=== PATIENT | female | born 1935 | race Caucasian/White ===

== ENCOUNTER 2018-11-11 09:52 | Outpatient (CLI) | payer MEDICARE, OTHER ==
--- NOTE | 2018-11-11 10:26 | ULT ---
Exam: Bilateral renal ultrasound HISTORY: Chronic kidney disease COMPARISON: None FINDINGS: Right kidney: Normal cortical echotexture. No hydronephrosis. There is right renal cortical thinning. Right kidney measurements: 10.5 x 4.7 x 4.7 cm. Left kidney: Normal cortical echotexture. No hydronephrosis. There is left renal cortical thinning. S mall hypoechoic focus emanating from the upper pole of the left kidney measuring 1.2 x 1.1 x 1.0 cm Left kidney measurements 4.2 x 9.2 x 4.2 cm. Urinary bladder: Normal mucosa. IMPRESSION: 1. No hydronephrosis. 2. Hypoechoic focus emanating from the upper pole of the left kidney too small to characterize 3. Bilateral renal cortical thinning.
== END 2018-11-11 09:53 | disposition home or self-care (01) ==
LOC: BICULT 09:52
PROVIDERS: ATTEND Internal Medicine Nephrology
DX: N18.3 Chronic kidney disease, stage 3 (moderate) (principal); N28.89 Other specified disorders of kidney and ureter
CPT/HCPCS: 76770

== ENCOUNTER 2018-12-08 00:22 | Emergency (ER) | payer MEDICARE, OTHER ==
[2018-12-08] MEDS ORDERED: Morphine 4 MG/ML VIAL ONE ×2 (01:10→05:13)
[2018-12-08 01:37] LABS: #Basophils 0.1 thou/uL (0.0-0.2); #Eosinphils 0.2 thou/uL (0.0-0.7); #Lymphocytes 1.4 thou/uL (1.20-3.40); #Monocytes 1.1 thou/uL (0.11-0.59); #Neutrophils 15.7 thou/uL (1.40-6.50); %Basophils 0.3 % (0.0-1.0); %Lymphocytes 7.4 % (21.0-51.0); %Monocytes 6.1 % (0.0-10.0); %Neutrophils 85.1 % (42.0-75.0); Hemoglobin 10.4 g/dL (12.0-16.0); Mean Corpuscular HGB CONC 32.9 g/dL (32.0-36.0); Mean Corpuscular Hemoglobin 29.4 pg (27.0-31.0); Mean Corpuscular Volume 89.3 fL (78.0-98.0); Mean Platelet Volume 6.8 fL (7.4-10.4); Platelet Count 313 thou/uL (130-400); RBC Distribution Width 14.3 % (11.5-14.5); Red Blood Cell (RBC) Count 3.55 mill/uL (4.20-5.40); White Blood Cell (WBC) Count 18.4 thou/uL (4.8-10.8)
[2018-12-08 01:56] LABS: Anion Gap 14 mmol/L (10-20); BUN (Urea Nitrogen) 30 mg/dL (9.8-20.1); Calc. Creatinine Clearance 0 mL/min (70-130); Calcium 9.6 mg/dL (7.8-10.44); Carbon Dioxide 21 mmol/L (23-31); Chloride 105 mmol/L (98-107); Estimated GFR-MDRD 28; Glucose 221 mg/dL (83-110); Potassium 3.1 mmol/L (3.5-5.1); Sodium 137 mmol/L (136-145)
[2018-12-08] MEDS ORDERED: Labetalol HCl 100 MG/20 ML VIAL ONE (02:20)
[2018-12-08] MEDS ORDERED: Lidocaine 1% (PF) 30 ML VIAL ONE (02:30)
--- NOTE | 2018-12-08 08:33 | RAD ---
RIGHT FOREARM 2 VIEWS: Date: 12/08/18 HISTORY: Fall. Pain. COMPARISON: None. FINDINGS: Distal radius fracture with dorsal angulation. Associated soft tissue swelling and deformity. Displac ed ulnar styloid fracture. IMPRESSION: Distal radius and ulna fractures. POS: [facility]
--- NOTE | 2018-12-08 08:34 | RAD ---
3 VIEWS RIGHT ELBOW: Date: 12/08/18 HISTORY: Fall. Pain. FINDINGS: No fracture. Joint space preserved. No joint effusion. IMPRESSION: No fracture. POS: [facility]
--- NOTE | 2018-12-08 08:35 | RAD ---
2 VIEWS RIGHT HUMERUS: Date: 12/08/18 HISTORY: Fall. Pain. FINDINGS: Impacted fracture involving the right humeral neck. There is mild displacement. IMPRESSION: Proximal right humerus fracture. POS: [facility]
--- NOTE | 2018-12-08 08:54 | RAD ---
RIGHT SHOULDER 2 VIEWS: HISTORY: Fall. Pain. FINDINGS: Impacted fracture involving the humeral neck. There does appear to be extensor fracture lucency to t he articular surface. Nondisplaced humeral head fracture is noted. IMPRESSION: Right humerus fracture. POS: [facility]
--- NOTE | 2018-12-08 09:03 | RAD ---
SINGLE VIEW OF THE CHEST: COMPARISON: None. HISTORY: Fall with chest pain. FINDINGS: A single view of the chest shows a normal-size cardiomediastinal silhouette. The patient is status p ost cardiac valve repair. Atherosclerotic calcification is seen in the aorta. Atelectasis versus sc arring is seen in the mid left lung. No consolidation or mass are seen. IMPRESSION: No evidence of acute cardiopulmonary disease. POS: [facility]
--- NOTE | 2018-12-08 09:32 | RAD ---
2 VIEWS RIGHT WRIST: Date: 12/08/18 Time: 0056 hours HISTORY: Distal radius fracture. FINDINGS: 2 views of the right wrist show an overlying fiberglass splint which obscures fine bony and soft tiss ue detail. There is a comminuted interarticular fracture of the distal radius and an associated ulnar styloid fracture. Alignment has not changed significantly compared to the prior examination. IMPRESSION: Distal radius and associated ulnar styloid fracture. POS: [facility]
--- NOTE | 2018-12-08 09:33 | RAD ---
3 VIEWS RIGHT WRIST: Date: 12/08/18 COMPARISON: None. HISTORY: Fall with right wrist pain. FINDINGS: 3 views of the right wrist show a comminuted interarticular fracture of the distal radius and an asso ciated ulnar styloid fracture. Moderate degenerative changes are seen in the first CMC joint. Diffuse soft tissue swelling is seen. IMPRESSION: Comminuted interarticular distal radius fracture and associated ulnar styloid fracture. POS: [facility]
== END 2018-12-08 08:59 ==
LOC: ERS 00:22
DX: S52.501A Unspecified fracture of the lower end of right radius, initial encounter for closed fracture (principal); S42.201A Unspecified fracture of upper end of right humerus, initial encounter for closed fracture; W19.XXXA Unspecified fall, initial encounter
CPT/HCPCS: 23625; 24655; 36415; 71045; 80048; 85025; 96374; 96375; 96376; J2001; J2270

== ENCOUNTER 2019-10-15 08:10 | Emergency (ER) | payer MEDICARE, OTHER ==
[2019-10-15 08:59] LABS: #Basophils 0.1 thou/uL (0.0-0.2); #Eosinphils 0.2 thou/uL (0.0-0.7); #Lymphocytes 1.8 thou/uL (1.20-3.40); #Monocytes 0.8 thou/uL (0.11-0.59); #Neutrophils 6.2 thou/uL (1.40-6.50); %Basophils 0.8 % (0.0-1.0); %Eosinophils 2.5 % (0.0-10.0); %Lymphocytes 19.7 % (21.0-51.0); %Monocytes 8.5 % (0.0-10.0); %Neutrophils 68.5 % (42.0-75.0); Hemoglobin 11.8 g/dL (12.0-16.0); Mean Corpuscular HGB CONC 31.2 g/dL (32.0-36.0); Mean Corpuscular Hemoglobin 28.9 pg (27.0-31.0); Mean Corpuscular Volume 92.5 fL (78.0-98.0); Mean Platelet Volume 7.6 fL (7.4-10.4); Platelet Count 317 thou/uL (130-400); RBC Distribution Width 12.8 % (11.5-14.5); Red Blood Cell (RBC) Count 4.09 mill/uL (4.20-5.40); White Blood Cell (WBC) Count 9.1 thou/uL (4.8-10.8)
--- NOTE | 2019-10-15 09:03 | RAD ---
Exam: Chest one view HISTORY:Shortness of breath. Severe anxiety. Comparison: 01/04/2019 FINDINGS: Cardiac silhouette:Upper normal cardiac silhouette. Stable osteolytic aortic valve. Aorta: Stable atherosclerosis. Pulmonary vessels: Normal Costophrenic angles: Clear LUNGS: Stable chronic changes of the lung parenchyma. Pneumothorax: None Osseous abnormalities: Old left rib fractures and old right humeral neck fracture. IMPRESSION: No acute cardiopulmonary process.
[2019-10-15 09:29] LABS: ALT (SGPT) 18 U/L (8-55); AST (SGOT) 22 U/L (5-34); Albumin 4.2 g/dL (3.4-4.8); Alkaline Phosphatase 75 U/L (40-110); Anion Gap 16 mmol/L (10-20); BUN (Urea Nitrogen) 19 mg/dL (9.8-20.1); Bilirubin, Total 0.7 mg/dL (0.2-1.2); CK (CPK) 96 U/L (29-168); Calc. Creatinine Clearance 0 mL/min (70-130); Calcium 9.3 mg/dL (7.8-10.44); Carbon Dioxide 21 mmol/L (23-31); Chloride 106 mmol/L (98-107); Estimated GFR-MDRD 25; Globulin 3.4 g/dL (2.4-3.5); Glucose 163 mg/dL (83-110); Lipase 22 U/L (8-78); Potassium 3.9 mmol/L (3.5-5.1); Protein, Total 7.6 g/dL (6.0-8.3); Sodium 139 mmol/L (136-145)
== END 2019-10-15 11:10 | disposition home or self-care (01) ==
LOC: ERS 08:10
DX: I10 Essential (primary) hypertension (principal); E11.9 Type 2 diabetes mellitus without complications; J44.9 Chronic obstructive pulmonary disease, unspecified; F41.9 Anxiety disorder, unspecified
CPT/HCPCS: 71045; 80053; 82550; 83690; 84484; 85025; 93005

== ENCOUNTER 2019-12-01 09:21 | Outpatient (CLI) | payer MEDICARE, OTHER ==
--- NOTE | 2019-12-01 11:41 | MRI ---
MRI CERVICAL SPINE WITHOUT CONTRAST: Date: 12/01/2019 INDICATION: Cervical myelopathy. Neck pain. FINDINGS: The cervical vertebra maintain height. Vertebral body signal is preserved. Mild anterolisthesis at C5 -6 measures approximately 3.0 mm. Alignment is otherwise preserved. Degenerative disc changes with lo ss of disc space at C6-7. Mild degenerative osteophytes from the cervical vertebra. Findings at each level are noted. C2-3: Mild posterior disc bulge and spondylosis without central canal or foraminal stenosis. C3-4: Mild disc bulge and spondylosis abut the anterior cord. Mild right foraminal encroachment from uncinate hypertrophy. C4-5: Posterior disc bulge and spondylosis efface the anterior subarachnoid space. No significant co rd impingement. Mild right foraminal narrowing due to facet and uncinate hypertrophy. C5-6: Anterolisthesis is noted above. Posterior disc bulge and spondylosis abut the anterior cord. N o significant foraminal stenosis noted. C6-7: Disc bulge and spondylosis abut the anterior cord. No significant foraminal stenosis. C7-T1: Minimal disc bulge and spondylosis. Anterior subarachnoid space is preserved with no central canal or foraminal stenosis. Cervical cord signal appears normally maintained. No evidence of cervical cord edema or lesion. IMPRESSION: Degenerative changes of the cervical spine with posterior spondylosis, most prominent at C3-4, C4-5, C5-6, and C6-7 as described above. POS: [facility]
--- NOTE | 2019-12-01 11:42 | MRI ---
MRI Lumbar Spine Noncontrast: HISTORY: Bilateral leg weakness. Low back pain with numbness in left leg after falling one year ago. COMPARISON: None FINDINGS: Subcentimeter increased T2-weighted signal intensity exophytic lesions are seen in the superior pole right kidney and in the superior pole and midportion left kidney which are difficult to characterize given small size but statistically likely represent cysts. Conus medullaris is normal in morphology and terminates at the L1-2 level. Normal signal intensity is demonstrated in the bone marrow. L1-2: There is no disc bulge or disc herniation. Central spinal canal and neural foramina are patent. L2-3: Mild disc osteophyte complex. No significant central canal narrowing is present. Neural foramin a are patent. Mild facet degenerative changes are seen. L3-4: Broad-based disc osteophyte complex with small central disc protrusion. Findings result in flat tening of the anterior aspect of the thecal sac. Neural foramina are patent. L4-5: Mild disc osteophyte complex. Facet hypertrophic changes and ligamentous thickening are present . Findings result in mild central canal narrowing. Neural foramina are patent. L5-S1: Mild disc osteophyte complex present. No central spinal canal or neural foraminal narrowing is present. IMPRESSION: 1 Mild degenerative changes in the lumbar spine without definite central canal narrowing at any level . Neural foramina are patent all levels of the lumbar spine. 2. Hyperintense lesions in the superior pole of each kidney and midportion left kidney statistically likely related to cysts.
== END 2019-12-01 09:22 | disposition home or self-care (01) ==
LOC: BICMRI 09:21
PROVIDERS: ATTEND Family Medicine
DX: M47.12 Other spondylosis with myelopathy, cervical region (principal); R29.898 Other symptoms and signs involving the musculoskeletal system; M47.816 Spondylosis without myelopathy or radiculopathy, lumbar region; N28.89 Other specified disorders of kidney and ureter
CPT/HCPCS: 72141; 72148

== ENCOUNTER 2020-03-29 10:17 | Outpatient (CLI) | payer MEDICARE, OTHER ==
--- NOTE | 2020-04-26 15:50 | MMO ---
Bilateral MAMMO Bilat Screen [facility]. CLINICAL HISTORY: Patient is 84 years old and is seen for screening. The patient has the following family history of breast cancer: sister. The patient has no personal history of cancer. VIEWS: The views performed were: bilateral craniocaudal; bilateral craniocaudal with tomosynthesis; and bilateral mediolateral oblique with tomosynthesis. This study has been interpreted with the assistance of computer-aided detection. MAMMOGRAM FINDINGS: There are scattered fibroglandular densities. There are calcifications seen in both breasts. There are no suspicious masses, suspicious calcifications, or new areas of architectural distortion. IMPRESSION: THERE IS NO MAMMOGRAPHIC EVIDENCE OF MALIGNANCY. A ROUTINE FOLLOW-UP MAMMOGRAM IN 1 YEAR IS RECOMMENDED. THE RESULTS OF THIS EXAM WERE SENT TO THE PATIENT. ACR BI-RADS Category 2 - Benign finding MAMMOGRAPHY NOTE: 1. A negative mammogram report should not delay a biopsy if a dominant of clinically suspicious mass is present. 2. Approximately 10% to 15% of breast cancers are not detected by mammography. 3. Adenosis and dense breasts may obscure an underlying neoplasm. Reported by: MATEO AARON MD Electonically Signed: [id number]
== END 2020-03-29 10:18 | disposition home or self-care (01) ==
LOC: BICMAMMO 10:17
PROVIDERS: ATTEND Family Medicine
DX: Z12.31 Encounter for screening mammogram for malignant neoplasm of breast (principal); Z80.3 Family history of malignant neoplasm of breast
CPT/HCPCS: 77063; 77067

== ENCOUNTER 2020-05-24 09:39 | Outpatient (CLI) | payer MEDICARE, OTHER ==
--- NOTE | 2020-05-24 10:30 | ULT ---
US Abdominal History: Abdominal pain Comparison: None. Findings: Real-time grayscale and color evaluation of the abdomen was performed. Visualized portion of the aorta, IVC and pancreas are unremarkable. Prior cholecystectomy. The liver slightly enlarged measuring 18 cm in length. Diffuse increased hepatic echotexture. No hepa tic mass. The right kidney measures 10 x 4.6 x 4.8 cm and the left kidney measures 10.7 x 4.5 x 5.4 cm. No paul l mass, hydronephrosis or abnormal calcifications. No free fluid around the hepatic capsule. Portal vein is patent antegrade flow. Common bile duct measures 1.1 cm. No intrahepatic biliary dilatation. Mild bilateral renal cortical thinning. Spleen measures 10.7 cm in length. Impression: 1. Findings of chronic medical renal disease with mild bilateral renal cortical thinning. 2. Mild hepatic steatosis and subtle hepatomegaly. 3. Common bile duct size upper limits of normal without intrahepatic biliary dilatation suggesting re servoir effect from prior cholecystectomy.
--- NOTE | 2020-05-24 11:18 | ULT ---
Transabdominal pelvic ultrasound: 05/24/2020 COMPARISON: None HISTORY: Pain TECHNIQUE: Multiplanar grayscale sonographic imaging of the pelvis is obtained with transabdominal im aging. The patient reports history of hysterectomy and unilateral oophorectomy. FINDINGS: Neither ovary is visualized. The uterus is nonvisualized. No free fluid is seen. IMPRESSION: Limited grossly unremarkable pelvic ultrasound.
== END 2020-05-24 09:40 | disposition home or self-care (01) ==
LOC: BICULT 09:39
PROVIDERS: ATTEND Family Medicine
DX: R10.84 Generalized abdominal pain (principal); N28.89 Other specified disorders of kidney and ureter; K76.0 Fatty (change of) liver, not elsewhere classified; Z90.49 Acquired absence of other specified parts of digestive tract
CPT/HCPCS: 76856; 93975

== ENCOUNTER 2020-06-30 08:50 | Outpatient (CLI) | payer MEDICARE, OTHER ==
--- NOTE | 2020-06-30 10:01 | CT ---
CT Abdomen Pelvis WO Con: 06/30/2020 9:00 AM HISTORY: Burning sensation in her abdomen and splenomegaly COMPARISON: Abdominal ultrasound 05/24/2020 TECHNIQUE: Multiple contiguous axial images were obtained and a CT of the abdomen and pelvis without IV contrast . Coronal and sagittal reformats were performed. FINDINGS: This examination is limited for the evaluation of solid organs and vascular structures due to the lac k of intravenous contrast. Lower Chest: Patient is status post mitral valve replacement. Abdomen: Liver: within normal limits. Bile Ducts: Normal caliber. Gallbladder: Removed Pancreas: within normal limits. Spleen: within normal limits. No evidence of splenomegaly. Adrenals: There is a 1.9 cm fat-containing right adrenal mass Kidneys: within normal limits. Pelvis: Reproductive Organs: Status post hysterectomy. Ureters: within normal limits. Bladder: within normal limits. Bowel: Normal caliber. Mesenteric Lymph Nodes: No enlarged mesenteric lymph nodes. Peritoneum: No ascites or free air, no fluid collection. Vessels: Atherosclerotic calcifications in the aorta Retroperitoneum: within normal limits. Abdominal Wall: 1.6 cm fat-containing umbilical hernia. Bones: Degenerative changes in the spine. Status post left hip arthroplasty. IMPRESSION: 1. No evidence of acute intraabdominal or pelvic abnormality. 2. Right adrenal myelolipoma
== END 2020-06-30 08:51 | disposition home or self-care (01) ==
LOC: BICCT 08:50
PROVIDERS: ATTEND Family Medicine
DX: R16.1 Splenomegaly, not elsewhere classified (principal); D17.79 Benign lipomatous neoplasm of other sites
CPT/HCPCS: 74176